=== PATIENT | male | born 1975 | race Hispanic/Latino ===

== ENCOUNTER 2019-08-31 11:33 | Emergency (ER) | payer SELFPAY ==
[2019-08-31 11:55] LABS: Absolute Lymphocytes (CBC) 2.4 K/uL (0.7-4.9); Basophils % 0.8 % (0-1.3); Hematocrit 50.5 % (39.6-49.0); Lymphocytes % 24.9 % (15.3-44.8); MPV 10.4 fL (7.6-11.3); RBC Red Blood Cell Count 5.31 M/uL (4.33-5.43)
[2019-08-31 11:58] LABS: Protime INR 0.96
[2019-08-31 12:12] LABS: ALT/SGPT 64 U/L (12-78); AST/SGOT 41 U/L (15-37); Albumin 4.1 g/dL (3.4-5.0); Alkaline Phosphatase 74 U/L (45-117); BUN Blood Urea Nitrogen 15 mg/dL (7-18); Bicarbonate 28 mmol/L (21-32); Bilirubin Direct < 0.1 mg/dL (0-0.2); Bilirubin Total 0.3 mg/dL (0.2-1.0); Glucose Level 119 mg/dL (74-106); Magnesium 2.6 mg/dL (1.8-2.4); NT PRO-BNP 6 pg/mL (<125); Potassium 4.1 mmol/L (3.5-5.1); Protein, Total 8.6 g/dL (6.4-8.2); Sodium Level 144 mmol/L (136-145); Troponin (Emerg Dept Use Only) < 0.02 ng/mL (0.0-0.045)
[2019-08-31 12:32] LABS: Barbiturates NEGATIVE (NEGATIVE); Benzodiazepines NEGATIVE (NEGATIVE); Cocaine NEGATIVE (NEGATIVE); METHAMPHETAM NEGATIVE (NEGATIVE); Methadone NEGATIVE (NEGATIVE); Opiates NEGATIVE (NEGATIVE); Phencyclidine NEGATIVE (NEGATIVE); THC Cannibis NEGATIVE (NEGATIVE)
--- NOTE | 2019-08-31 12:38 | RAD REPORT ---
EXAM DESCRIPTION: Shahzad Single View08/31/2019 12:30 pm CLINICAL HISTORY: Chest pain COMPARISON: none FINDINGS: The lungs appear clear of acute infiltrate. The heart is normal size IMPRESSION: No acute abnormalities displayed
[2019-08-31 13:06] LABS: Urine Blood NEGATIVE (NEG); Urine Glucose NEGATIVE (NEG); Urine Protein TRACE (NEG); Urine Specific Gravity >1.030 (1.005-1.030); Urine pH 5.5 (5.0-7.0)
--- NOTE | 2019-08-31 13:30 | ER ---
Nurse's Notes [facility] Name: Tima Mendoza Age: 44 yrs Sex: Male : 1975 Arrival Date: 08/31/2019 Time: 11:37 Bed 17 Private MD: Diagnosis: Anxiety disorder, unspecified;Other chest pain;Alcohol abuse Presentation: 08/31 11:38 Presenting complaint: EMS states: Chest pressure started 6 hours. Gave Aspirin 324mg, ca1 Nitro SL x 3. Pt A\T\Ox4, GCS 15. VS BP 124/72, HR 80, RR 16, SP02 97%RA. Pt from [facility] for DWI. He was here last night for a legal draw. Now, accompanied by [employer]. No Hx of Cardiac problem. Med Hx of HPN. Transition of care: patient was not received from another setting of care. Onset of symptoms was August 31, 2019 at 05:40. Risk Assessment: Do you want to hurt yourself or someone else? Patient reports no desire to harm self or others. Initial Sepsis Screen: Does the patient meet any 2 criteria? No. Patient's initial sepsis screen is negative. Does the patient have a suspected source of infection? No. Patient's initial sepsis screen is negative. Care prior to arrival: Medication(s) given: ASA, 81 mg, x 4, Nitroglycerin, 0.4 mg SL x 3, IV initiated. 18 GA, in the right antecubital area. 11:38 Method Of Arrival: EMS ca1 11:38 Acuity: ADONIS 3 ca1 11:40 Note [employer] at bedside and pt remains in their custody at this time. tw2 Triage Assessment: 11:40 General: Behavior is calm. Pain: Complains of pain in chest. tw2 14:04 General: Appears. hb Historical: - Allergies: 11:43 No Known Allergies; ca1 - Home Meds: 11:43 None [Active]; ca1 - PMHx: 11:43 Hypertension; ca1 - PSHx: 11:43 None; ca1 - Immunization history:: Adult Immunizations up to date, Flu vaccine is not up to date. - Social history:: Smoking status: Patient uses tobacco products, 3-4 cigarettes per day. - Ebola Screening: : Patient negative for fever greater than or equal to 101.5 degrees Fahrenheit, and additional compatible Ebola Virus Disease symptoms Patient denies exposure to infectious person Patient denies travel to an Ebola-affected area in the 21 days before illness onset No symptoms or risks identified at this time. - Family history:: not pertinent. Screenin:45 Abuse screen: Denies threats or abuse. Denies injuries from another. Nutritional ca1 screening: No deficits noted. Tuberculosis screening: No symptoms or risk factors identified. Fall Risk IV access (20 points). Assessment: 12:45 Reassessment: Patient appears in no apparent distress at this time. No changes from tw2 previously documented assessment. Patient and/or family updated on plan of care and expected duration. Pain level reassessed. Patient is alert, oriented x 3, equal unlabored respirations, skin warm/dry/pink. Vital Signs: 11:43 BP 113 / 72; Pulse 84; Resp 12 S; Temp 98.9(TE); Pulse Ox 98% on R/A; Weight 78.93 kg ca1 (R); Height 5 ft. 7 in. (170.18 cm) (R); Pain 3/10; 12:45 BP 139 / 92; Pulse 86; Resp 17; Pulse Ox 96% on R/A; tw2 11:43 Body Mass Index 27.25 (78.93 kg, 170.18 cm) ca1 ED Course: 11:37 Patient arrived in ED. ca1 11:37 Davon Hidalgo MD is Attending Physician. meeta 11:41 Tabatha Farmer, SARA is Primary Nurse. tw2 11:42 Triage completed. ca1 11:43 Arm band placed on right wrist. ca1 11:44 Patient has correct armband on for positive identification. Bed in low position. Call ca1 light in reach. Side rails up X 1. bottle labeler on. Pulse ox on. NIBP on. Warm blanket given. 11:45 Maintain EMS IV. Dressing intact. Good blood return noted. Site clean \T\ dry. Gauge \T\ ca 1 site: G18 RAC. 11:49 Basic Metabolic Panel Sent. 5 11:49 CBC with Diff Sent. 5 11:49 LFT's Sent. 5 11:49 Magnesium Sent. 5 11:49 NT PRO-BNP Sent. 5 11:49 PT-INR Sent. 5 11:49 Troponin (emerg Dept Use Only) Sent. 5 11:50 Initial lab(s) drawn, by me, sent to lab. EKG done, by ED staff, reviewed by Davon Hidalgo MD. 12:26 X-ray completed. Portable x-ray completed in exam room. Patient tolerated procedure mh1 well. 12:30 XRAY Chest (1 view) In Process Unspecified. EDMS 13:28 Nolan Judge MD is Referral Physician. [facility] 14:04 No provider procedures requiring assistance completed. IV discontinued, intact, tw2 bleeding controlled, No redness/swelling at site. Pressure dressing applied. Administered Medications: 14:03 Drug: Thiamine 100 mg Route: IV; Rate: per protocol; Site: right antecubital; hb 14:03 Follow up: Response: Medication administered at discharge. hb 14:04 Follow up: Response: No adverse reaction; IV Status: Completed infusion tw2 14:03 Drug: Aspirin 81 mg Route: PO; hb 14:03 Follow up: Response: Medication administered at discharge. hb Outcome: 13:29 Discharge ordered by . meeta 14:04 Patient left the ED. hb 14:04 Discharged to Law Enforcement tw2 14:04 Condition: stable 14:04 Discharge instructions given to patient, police, Instructed on discharge instructions, follow up and referral plans. Demonstrated understanding of instructions, follow-up care. Signatures: Dispatcher [employer] EDAR Davon Hidalgo MD MD cha Harvey, Martha 1 Bety Rivero, RN RN Tabatha Farmer RN RN 2 Nicolette Sommers 5 Jimena Witt RN RN ca1 Corrections: (The following items were deleted from the chart) 11:45 11:45 Fall Risk ca1 ca1
--- NOTE | 2019-08-31 13:31 | EDPHYS ---
Physician Documentation [facility] Name: Tima Mendoza Age: 44 yrs Sex: Male : 1975 Arrival Date: 08/31/2019 Time: 11:37 Bed 17 Private MD: ED Physician Davon Hidalgo HPI: 08/31 13:24 This 44 yrs old Male presents to ER via EMS with complaints of chest pain and [facility] anxiety. 13:24 The patient or guardian reports chest pain that is located primarily in the anterior meeta chest wall. Onset: 6 day(s) ago. The pain does not radiate. Associated signs and symptoms: The patient has no apparent associated signs or symptoms. The chest pain is described as aching. Modifying factors: The symptoms are alleviated by remaining still, the symptoms are aggravated by emotionally stressful situations. Severity of pain: At its worst the pain was mild in the emergency department the pain has resolved. Historical: - Allergies: 11:43 No Known Allergies; ca1 - Home Meds: 11:43 None [Active]; ca1 - PMHx: 11:43 Hypertension; ca1 - PSHx: 11:43 None; ca1 - Immunization history:: Adult Immunizations up to date, Flu vaccine is not up to date. - Social history:: Smoking status: Patient uses tobacco products, 3-4 cigarettes per day. - Ebola Screening: : Patient negative for fever greater than or equal to 101.5 degrees Fahrenheit, and additional compatible Ebola Virus Disease symptoms Patient denies exposure to infectious person Patient denies travel to an Ebola-affected area in the 21 days before illness onset No symptoms or risks identified at this time. - Family history:: not pertinent. ROS: 13:24 Constitutional: Negative for fever, chills, and weight loss, Eyes: Negative for injury, meeta pain, redness, and discharge, ENT: Negative for injury, pain, and discharge, Neck: Negative for injury, pain, and swelling, Respiratory: Negative for shortness of breath, cough, wheezing, and pleuritic chest pain, Abdomen/GI: Negative for abdominal pain, nausea, vomiting, diarrhea, and constipation, Back: Negative for injury and pain, : Negative for injury, bleeding, discharge, and swelling, MS/Extremity: Negative for injury and deformity, Skin: Negative for injury, rash, and discoloration, Neuro: Negative for headache, weakness, numbness, tingling, and seizure, Allergy/Immunology: Negative for hives, rash, and allergies, Endocrine: Negative for neck swelling, polydipsia, polyuria, polyphagia, and marked weight changes, Hematologic/Lymphatic: Negative for swollen nodes, abnormal bleeding, and unusual bruising. 13:24 Cardiovascular: Positive for chest pain, palpitations. Exam: 13:24 Constitutional: This is a well developed, well nourished patient who is awake, alert, meeta and in no acute distress. Head/Face: Normocephalic, atraumatic. Eyes: Pupils equal round and reactive to light, extra-ocular motions intact. Lids and lashes normal. Conjunctiva and sclera are non-icteric and not injected. Cornea within normal limits. Periorbital areas with no swelling, redness, or edema. ENT: Nares patent. No nasal discharge, no septal abnormalities noted. Tympanic membranes are normal and external auditory canals are clear. Oropharynx with no redness, swelling, or masses, exudates, or evidence of obstruction, uvula midline. Mucous membranes moist. Neck: Trachea midline, no thyromegaly or masses palpated, and no cervical lymphadenopathy. Supple, full range of motion without nuchal rigidity, or vertebral point tenderness. No Meningismus. Chest/axilla: Normal chest wall appearance and motion. Nontender with no deformity. No lesions are appreciated. Cardiovascular: Regular rate and rhythm with a normal S1 and S2. No gallops, murmurs, or rubs. Normal PMI, no JVD. No pulse deficits. Respiratory: Lungs have equal breath sounds bilaterally, clear to auscultation and percussion. No rales, rhonchi or wheezes noted. No increased work of breathing, no retractions or nasal flaring. Abdomen/GI: Soft, non-tender, with normal bowel sounds. No distension or tympany. No guarding or rebound. No evidence of tenderness throughout. Back: No spinal tenderness. No costovertebral tenderness. Full range of motion. Male : Normal genitalia with no discharge or lesions. Skin: Warm, dry with normal turgor. Normal color with no rashes, no lesions, and no evidence of cellulitis. MS/ Extremity: Pulses equal, no cyanosis. Neurovascular intact. Full, normal range of motion. Neuro: Awake and alert, GCS 15, oriented to person, place, time, and situation. Cranial nerves II-XII grossly intact. Motor strength 5/5 in all extremities. Sensory grossly intact. Cerebellar exam normal. Normal gait. Psych: Awake, alert, with orientation to person, place and time. Behavior, mood, and affect are within normal limits. 13:24 Musculoskeletal/extremity: DVT Exam: No signs of deep vein thrombosis. no pain, no swelling, no tenderness, negative Homans' sign noted on exam, no appreciated bluish discoloration, no erythema, no increased warmth. Vital Signs: 11:43 BP 113 / 72; Pulse 84; Resp 12 S; Temp 98.9(TE); Pulse Ox 98% on R/A; Weight 78.93 kg ca1 (R); Height 5 ft. 7 in. (170.18 cm) (R); Pain 3/10; 12:45 BP 139 / 92; Pulse 86; Resp 17; Pulse Ox 96% on R/A; tw2 11:43 Body Mass Index 27.25 (78.93 kg, 170.18 cm) ca1 MDM: 11:37 Patient medically screened. [facility] 13:26 Data reviewed: vital signs, nurses notes, lab test result(s), EKG, radiologic studies, meeta plain films. 08/31 11:37 Order name: Basic Metabolic Panel; Complete Time: 13:23 ca1 08/31 11:37 Order name: CBC with Diff; Complete Time: 13:23 ca1 08/31 11:37 Order name: LFT's; Complete Time: 13:23 ca1 08/31 11:37 Order name: Magnesium; Complete Time: 13:23 ca1 08/31 11:37 Order name: NT PRO-BNP; Complete Time: 13:23 ca1 08/31 11:37 Order name: PT-INR; Complete Time: 13:23 ca1 08/31 11:37 Order name: Troponin (emerg Dept Use Only); Complete Time: 13:23 ca1 08/31 11:37 Order name: XRAY Chest (1 view); Complete Time: 13:23 ca1 08/31 11:37 Order name: EKG; Complete Time: 11: ca1 08/31 11:37 Order name: Cardiac monitoring; Complete Time: 11: ca1 08/31 12:04 Order name: UDS; Complete Time: 13:23 tw2 08/31 12:46 Order name: Urine Dipstick--Ancillary (enter results); Complete Time: 13:23 bd 08/31 11:37 Order name: EKG - Nurse/Tech; Complete Time: 11:49 ca1 08/31 11:37 Order name: IV Saline Lock; Complete Time: 11:38 ca1 08/31 11:37 Order name: Labs collected and sent; Complete Time: 11:38 ca1 08/31 11:37 Order name: O2 Per Protocol; Complete Time: 11:38 ca1 08/31 11:37 Order name: O2 Sat Monitoring; Complete Time: 11:38 ca1 08/31 12:05 Order name: Urine Dipstick-Ancillary (obtain specimen); Complete Time: 12:22 tw2 Administered Medications: 14:03 Drug: Thiamine 100 mg Route: IV; Rate: per protocol; Site: right antecubital; hb 14:03 Follow up: Response: Medication administered at discharge. hb 14:04 Follow up: Response: No adverse reaction; IV Status: Completed infusion tw2 14:03 Drug: Aspirin 81 mg Route: PO; hb 14:03 Follow up: Response: Medication administered at discharge. hb Disposition: 08/31/19 13:29 Discharged to Home. Impression: Anxiety disorder, unspecified, Other chest pain, Alcohol abuse. - Condition is Stable. - Discharge Instructions: Panic Attacks, Nonspecific Chest Pain, Panic Attacks, [id number], Aspirin and Your Heart. - Medication Reconciliation Form, Thank You Letter, Antibiotic Education, Prescription Opioid Use form. - Follow up: Private Physician; When: 2 - 3 days; Reason: Recheck today's complaints, Continuance of care, Re-evaluation by your physician. Follow up: Nolan Judge MD; When: 2 - 3 days; Reason: Recheck today's complaints, Re-evaluation by your physician. - Problem is new. - Symptoms have improved. Signatures: Dispatcher [employer] Davon Solorzano MD MD cha Baxter, Heather, RN RN hb Tabatha Farmer, RN RN tw2 Jimena Witt RN RN ca1 Corrections: (The following items were deleted from the chart) 14:04 13:29 08/31/2019 13:29 Discharged to Home. Impression: Anxiety disorder, unspecified; hb Other chest pain; Alcohol abuse. Condition is Stable. Forms are Medication Reconciliation Form, Thank You Letter, Antibiotic Education, Prescription Opioid Use. Follow up: Private Physician; When: 2 - 3 days; Reason: Recheck today's complaints, Continuance of care, Re-evaluation by your physician. Follow up: Nolan Judge; When: 2 - 3 days; Reason: Recheck today's complaints, Re-evaluation by your physician. Problem is new. Symptoms have improved. meeta
[2019-08-31] MEDS ORDERED: ASPIRIN 81 MG CHEWABLE TABLET ONE (13:57)
[2019-08-31] MEDS ORDERED: THIAMINE 200 MG/2 ML INJ ONE (13:58)
[2019-08-31 14:27] VITALS: TEMP 98.9
[2019-08-31 14:28] VITALS: BP 139/92; O2SAT 96
--- NOTE | 2019-08-31 15:36 | EKG ---
Test Date: 2019-08-31 Test Time: 11:47:38 Trial Attorney: ALEXEY MEASUREMENT RESULTS: Intervals: Rate: 86 KS: 144 QRSD: 80 QT: 354 QTc: 423 [place]: P: 38 KS: 144 QRS: 76 T: 13 INTERPRETIVE STATEMENTS: Normal sinus rhythm Possible Left atrial enlargement Borderline ECG No previous ECG available for comparison Electronically Signed On 08-31-19 15:35:08 SHOER by Rosas Navarro
== END 2019-08-31 14:04 | disposition home or self-care (01) ==
LOC: ER 11:33
DX: F41.9 Anxiety disorder, unspecified (principal); F10.10 Alcohol abuse, uncomplicated; I10 Essential (primary) hypertension; F17.210 Nicotine dependence, cigarettes, uncomplicated
CPT/HCPCS: 36415; 71045; 80048; 80076; 80307; 81003; 83735; 83880; 84484; 85025; 85610; 93005; 96374; 99284; J3411

== ENCOUNTER 2022-06-26 18:02 | Emergency (ER) | payer SELFPAY ==
[2022-06-26] MEDS ORDERED: HYDROCODONE/APAP 10/325 TAB ONE (18:27)
--- NOTE | 2022-06-26 19:04 | RAD REPORT ---
EXAM DESCRIPTION: RAD - Ribs Right - 06/26/2022 6:45 pm CLINICAL HISTORY: rib pain COMPARISON: <Comparisons> FINDINGS: Mildly displaced right lateral eighth through tenth rib fractures. No appreciable pneumoth orax identified. IMPRESSION: Right lateral eighth through tenth rib fractures. No appreciable pneumothorax .
[2022-06-26] MEDS ORDERED: MORPHINE 4 MG/ML SYR ONE (19:49)
[2022-06-26 20:08] LABS: Absolute Lymphocytes (CBC) 1.5 K/uL (0.7-4.9); Hematocrit 48.8 % (39.6-49.0); Lymphocytes % 9.6 % (15.3-44.8); MCV 93.2 fL (80-100); RBC Red Blood Cell Count 5.23 M/uL (4.33-5.43)
--- NOTE | 2022-06-26 22:09 | RAD REPORT ---
EXAM DESCRIPTION: CTChest Abdomen Pelvis W Cont - 06/26/2022 9:39 pm CLINICAL HISTORY: fall, right side rib pain COMPARISON: No comparisons TECHNIQUE: CT of the chest, abdomen, and pelvis was performed with IV contrast. All CT scans are performed using dose optimization technique as appropriate and may include automated exposure control or mA/KV adjustment according to patient size. FINDINGS: Thorax: Chest Wall: No abnormal mass Lungs: No acute abnormality. Pleura: No effusions or pneumothorax. Kerri/Mediastinum: No lymphadenopathy. Aorta/Pulmonary Arteries: Unremarkable Heart: Normal size. Abdomen/Pelvis: Liver: No acute abnormality or suspicious lesions. Biliary: No biliary ductal dilatation. Stomach: No significant focal abnormality. Duodenum: No significant focal abnormality. Pancreas: No significant abnormality. Spleen: No significant abnormality. Adrenal: No suspicious lesions. Kidney/ureter: No hydronephrosis. No renal calculi. Retroperitoneum: No retroperitoneal adenopathy. Vascular: No aneurysm. Bowel: No significant focal abnormality. Normal appendix. Peritoneum: No ascites or free air. Bladder: Grossly unremarkable. Reproductive: Prostatomegaly. Bones: Nondisplaced right posterior twelfth rib fracture. Right lateral eighth and ninth rib fracture s. The ninth rib fracture is displaced by a full shaft with. Other: n/a IMPRESSION: Right eighth, ninth and twelfth rib fractures. No underlying pneumothorax. No other evid ence of significant trauma.
--- NOTE | 2022-06-26 22:36 | EDPHYS ---
Physician Documentation [facility] Name: Tima Mendoza Age: 46 yrs Sex: Male : 1975 Arrival Date: 06/26/2022 Time: 18:13 Bed 24 Private MD: ED Physician Alycia Rodríguez HPI: 06/26 18:25 This 46 yrs old Male presents to ER via EMS with complaints of Fall Injury. cp 18:25 Details of fall: The patient fell from an upright position, slip and fall in bathroom cp striking right side of chest and abdomen against bathtub. 18:25 Onset: The symptoms/episode began/occurred just prior to arrival. Patient denies cp hitting head, denies LOC. Historical: - Allergies: 18:16 No Known Allergies; tp1 - Home Meds: 18:16 None [Active]; tp1 - PMHx: 18:16 Hypertension; tp1 - PSHx: 18:16 None; tp1 - Immunization history:: Client reports receiving the 2nd dose of the Covid vaccine. - Social history:: Smoking status: Patient reports the use of cigarette tobacco products, smokes one-half pack cigarettes per day. - Immunization history: Last tetanus immunization: unknown. ROS: 18:30 Constitutional: Negative for body aches, chills, fever, poor PO intake. cp 18:30 Eyes: Negative for injury, pain, redness, and discharge. cp 18:30 ENT: Negative for drainage from ear(s), ear pain, sore throat, difficulty swallowing, difficulty handling secretions. 18:30 Neck: Negative for pain with movement, pain at rest, stiffness. 18:30 Cardiovascular: Positive for chest pain, of the right lateral posterior chest and right lateral anterior chest, Negative for edema, palpitations. 18:30 Respiratory: Negative for cough, shortness of breath, wheezing. 18:30 Abdomen/GI: Positive for abdominal pain, of the anterior aspect of right lateral abdomen and posterior aspect of right lateral abdomen, Negative for vomiting, diarrhea, constipation. 18:30 Neuro: Negative for altered mental status, headache, loss of consciousness, syncope, weakness. 18:30 All other systems are negative. Exam: 18:35 Constitutional: The patient appears in no acute distress, alert, awake, cp non-diaphoretic, non-toxic, well developed, well nourished, in obvious pain, uncomfortable. 18:35 Head/Face: Normocephalic, atraumatic. cp 18:35 Eyes: Periorbital structures: appear normal, Conjunctiva: normal, no exudate, no injection, Sclera: no appreciated abnormality, Lids and lashes: appear normal, bilaterally. 18:35 ENT: External ear(s): are unremarkable, Nose: is normal, Mouth: Lips: moist, Oral mucosa: pink and intact, moist, Posterior pharynx: Airway: no evidence of obstruction, patent. 18:35 Neck: C-spine: vertebral tenderness, is not appreciated, crepitus, is not appreciated, ROM/movement: is normal, is supple, without pain, no range of motions limitations. 18:35 Chest/axilla: Inspection: normal, Palpation: crepitus, is not appreciated, tenderness, that is moderate, of the right lateral anterior chest and right lateral posterior chest. 18:35 Cardiovascular: Rate: normal, Rhythm: regular, Edema: is not appreciated, JVD: is not appreciated. 18:35 Respiratory: the patient does not display signs of respiratory distress, Respirations: normal, no use of accessory muscles, no retractions, labored breathing, is not present, Breath sounds: are clear throughout, no decreased breath sounds, no stridor, no wheezing. 18:35 Abdomen/GI: Inspection: abdomen appears normal, Bowel sounds: active, all quadrants, Palpation: soft, in all quadrants, moderate abdominal tenderness, in the right upper quadrant and posterior aspect of right lateral abdomen and anterior aspect of right lateral abdomen, rebound tenderness, is not appreciated, involuntary guarding, is not appreciated. 18:35 Back: vertebral tenderness, is not appreciated. 18:35 Neuro: Orientation: to person, place \T\ time. Mentation: is normal, Motor: moves all fours, strength is normal, Sensation: is normal. Vital Signs: 18:03 BP 158 / 85; Pulse 72; Resp 16; Temp 98.5; Pulse Ox 96% on R/A; Weight 80 kg; Height 6 tp1 ft. (182.88 cm); 19:05 BP 131 / 65; Pulse 59; Resp 16; Pulse Ox 96% on R/A; tp1 20:01 BP 143 / 93; Pulse 66; Resp 16; Pulse Ox 96% on R/A; tp1 21:00 BP 146 / 96; Pulse 64; Resp 16; Pulse Ox 98% ; tp1 22:54 BP 119 / 91; Pulse 60; Resp 16; Pulse Ox 97% on R/A; tp1 18:03 Body Mass Index 23.92 (80.00 kg, 182.88 cm) tp1 Luly Coma Score: 18:03 Eye Response: spontaneous(4). Verbal Response: oriented(5). Motor Response: obeys ss commands(6). Total: 15. 18:35 Eye Response: spontaneous(4). Verbal Response: oriented(5). Motor Response: obeys cp commands(6). Total: 15. 19:05 Eye Response: spontaneous(4). Verbal Response: oriented(5). Motor Response: obeys tp1 commands(6). Total: 15. 20:01 Eye Response: spontaneous(4). Verbal Response: oriented(5). Motor Response: obeys tp1 commands(6). Total: 15. 21:00 Eye Response: spontaneous(4). Verbal Response: oriented(5). Motor Response: obeys tp1 commands(6). Total: 15. 22:54 Eye Response: spontaneous(4). Verbal Response: oriented(5). Motor Response: obeys tp1 commands(6). Total: 15. Trauma Score (Adult): 18:03 Eye Response: spontaneous(1); Verbal Response: oriented(1); Motor Response: obeys ss commands(2); Systolic BP: > 89 mm Hg(4); Respiratory Rate: 10 to 29 per min(4); [place] Score: 15; Trauma Score: 12 19:05 Eye Response: spontaneous(1); Verbal Response: oriented(1); Motor Response: obeys tp1 commands(2); Systolic BP: > 89 mm Hg(4); Respiratory Rate: 10 to 29 per min(4); [place] Score: 15; Trauma Score: 12 20:01 Eye Response: spontaneous(1); Verbal Response: oriented(1); Motor Response: obeys tp1 commands(2); Systolic BP: > 89 mm Hg(4); Respiratory Rate: 10 to 29 per min(4); [place] Score: 15; Trauma Score: 12 21:00 Eye Response: spontaneous(1); Verbal Response: oriented(1); Motor Response: obeys tp1 commands(2); Systolic BP: > 89 mm Hg(4); Respiratory Rate: 10 to 29 per min(4); [place] Score: 15; Trauma Score: 12 22:54 Eye Response: spontaneous(1); Verbal Response: oriented(1); Motor Response: obeys tp1 commands(2); Systolic BP: > 89 mm Hg(4); Respiratory Rate: 10 to 29 per min(4); [place] Score: 15; Trauma Score: 12 MDM: 18:22 Patient medically screened. cp 19:00 Differential diagnosis: closed head injury, contusion, fracture, multiple trauma. cp 22:35 Data reviewed: vital signs, nurses notes, lab test result(s), radiologic studies, CT cp scan, plain films. 22:35 Test interpretation: by ED physician or midlevel provider: plain radiologic studies. cp Counseling: I had a detailed discussion with the patient and/or guardian regarding: the historical points, exam findings, and any diagnostic results supporting the discharge/admit diagnosis, lab results, radiology results, the need for outpatient follow up, a family practitioner. Response to treatment: the patient's symptoms have markedly improved after treatment. ED course: VSS. Pain improved. Patient with no signs of respiratory distress. Will discharge to home for continued monitoring. 06/26 19:32 Order name: Basic Metabolic Panel; Complete Time: 22:32 cp 06/26 22:32 Interpretation: Normal except: GLUC 112; BUN 19; GFR 82. cp 06/26 19:32 Order name: CBC with Diff; Complete Time: 22:32 cp 06/26 22:32 Interpretation: Normal except: WBC 16.00; RIC% 83.2; LYM% 9.6; NEUT A 13.4. cp 06/26 18:20 Order name: XRAY Ribs RIGHT; Complete Time: 19:19 cp 06/26 19:32 Order name: CT Chest, Abdomen, Pelvis - W/Contrast; Complete Time: 22:32 cp 06/26 19:32 Order name: Type And Screen; Complete Time: 22:32 cp 06/26 19:32 Order name: Labs collected and sent; Complete Time: 19:58 cp 06/26 19:52 Order name: INCENTIVE SPIROMETRY cp Administered Medications: 18:20 CANCELLED (Physician Discretion): Hydrocodone-Acetaminophen (7.5 mg-325 mg) 1 tabs PO cp once 18:28 Drug: HYDROcodone-acetaminophen 10 mg-325 mg 1 tabs Route: PO; tp1 22:57 Follow up: Response: Pain is decreased tp1 19:58 Drug: morphine 4 mg Route: IVP; Infused Over: 4 mins; Site: right antecubital; tp1 22:57 Follow up: Response: Pain is decreased tp1 Disposition Summary: 06/26/22 22:35 Discharge Ordered Location: Home cp Problem: new cp Symptoms: have improved cp Condition: Stable cp Diagnosis - Multiple fractures of ribs, right side - 8th, 9th and 12th cp - Fall on same level from slipping, tripping and stumbling with subsequent striking cp against object Followup: cp - With: Private Physician - When: 1 - 2 days - Reason: Recheck today's complaints Discharge Instructions: - Discharge Summary Sheet cp - Fall Prevention in the Home, Adult cp - Rib Fracture cp - How to Use an Incentive Spirometer cp Forms: - Medication Reconciliation Form cp - Thank You Letter cp - Antibiotic Education cp - Prescription Opioid Use cp Prescriptions: - Ibuprofen 800 mg Oral Tablet - take 1 tablet by ORAL route every 8 hours As needed take with food; 30 tablet; cp Refills: 0, Product Selection Permitted - Tylenol-Codeine #3 300 mg-30 mg Oral - take 2 tablet by ORAL route every 6-8 hours; 20 tablet; Refills: 0, Product cp Selection Permitted Signatures: Dispatcher [employer] EDMS Davon Catalan PA PA cp Amee Solis RN RN tp1 Corrections: (The following items were deleted from the chart) 18:20 18:20 Hydrocodone-Acetaminophen (7.5 mg-325 mg) 1 tabs PO once ordered. cp cp 19:42 18:54 [id number] ordered. EDMS EDMS 22:33 22:32 Normal except: WBC 16.00. cp cp
--- NOTE | 2022-06-26 22:36 | ER ---
Nurse's Notes [facility] Name: Tima Mendoza Age: 46 yrs Sex: Male : 1975 Arrival Date: 06/26/2022 Time: 18:13 Bed 24 Private MD: Diagnosis: Multiple fractures of ribs, right side-8th, 9th and 12th;Fall on same level from slipping, tripping and stumbling with subsequent striking against object Presentation: 06/26 18:03 Chief complaint: EMS states: Toned out to PT home for a fall. PT fell while in the tp1 shower. CO right sided rib pain rated 2/10. EMS reported PT ambulated to EMS from second story apartment. 18:03 Coronavirus screen: Vaccine status: Patient reports receiving the 2nd dose of the covid tp1 vaccine. Ebola Screen: Patient denies exposure to infectious person. Patient denies travel to an Ebola-affected area in the 21 days before illness onset. Initial Sepsis Screen: Does the patient meet any 2 criteria? No. Patient's initial sepsis screen is negative. Does the patient have a suspected source of infection? No. Patient's initial sepsis screen is negative. Risk Assessment: Do you want to hurt yourself or someone else? Patient reports no desire to harm self or others. 18:03 Method Of Arrival: EMS: [facility] tp1 18:03 Onset of symptoms was June 26, 2022. tp1 18:03 Acuity: ADONIS 4 tp1 22:55 Mechanism of Injury: Fall. tp1 Triage Assessment: 18:03 General: Appears in no apparent distress. uncomfortable, Behavior is calm, cooperative. tp1 Pain: Complains of pain in right side of ribs Pain does not radiate. Pain currently is 7 out of 10 on a pain scale. Pain began 1 hour ago. Is continuous, Aggravated by repositioning. EENT: No deficits noted. Neuro: Jack Agitation-Sedation Scale (RASS): 0 - Alert and Calm Level of Consciousness is awake, alert, obeys commands, Oriented to person, place, time, situation. Cardiovascular: Capillary refill < 3 seconds in bilateral fingers Patient's skin is warm and dry. Cardiovascular: Denies chest pain. Respiratory: Airway is patent Respiratory effort is even, Respiratory pattern is regular, Denies shortness of breath. GI: Abdomen is flat, non-distended, Abd is soft and non tender. : No signs and/or symptoms were reported regarding the genitourinary system. Derm: Skin is pink, warm \T\ dry. Musculoskeletal: Circulation, motion, and sensation intact. Historical: - Allergies: 18:16 No Known Allergies; tp1 - Home Meds: 18:16 None [Active]; tp1 - PMHx: 18:16 Hypertension; tp1 - PSHx: 18:16 None; tp1 - Immunization history:: Client reports receiving the 2nd dose of the Covid vaccine. - Social history:: Smoking status: Patient reports the use of cigarette tobacco products, smokes one-half pack cigarettes per day. - Immunization history: Last tetanus immunization: unknown. Screenin:18 Abuse screen: Denies threats or abuse. Denies injuries from another. Nutritional tp1 screening: No deficits noted. Tuberculosis screening: No symptoms or risk factors identified. Fall Risk Fall in past 12 months (25 points). No secondary diagnosis (0 pts). No IV (0 pts). Ambulatory Aid- None/Bed Rest/Nurse Assist (0 pts). Gait- Normal/Bed Rest/Wheelchair (0 pts) Mental Status- Oriented to own ability (0 pts). Total Rg Fall Scale indicates Low Risk Score (25-44 pts). Fall prevention measures have been instituted. Side Rails Up X 2 Frequent Obs/Assesments occuring As available Patient and Family Educated on Fall Prevention Program and strategies. Primary Survey: 18:03 NO uncontrolled hemorrhage observed. Breathing/Chest: Spontaneous respiratory effort, ss equal unlabored respirations, breath sounds clear bilaterally, regular pattern, symmetrical chest rise and fall. Respiratory effort: spontaneous, unlabored, Breath sounds: clear, bilaterally. Respiratory pattern: regular, Chest inspection: symmetrical rise and fall of the chest. Circulation: No external hemorrhage present. Regular and strong central pulse, skin warm/dry/normal color. Disability Pupils are equal, round, reactive to light and accommodation. Client is alert. Exposure/Environment: There is no evidence of uncontrolled external bleeding. Assessment: 18:03 General: see triage notes . tp1 18:03 General: Appears in no apparent distress. comfortable, Behavior is calm, cooperative. ss Pain: Complains of pain in right lateral anterior chest and right lateral posterior chest Is continuous. Neuro: Level of Consciousness is awake, alert, obeys commands, Oriented to person, place, time, situation, Speech is normal, Facial symmetry appears normal. Cardiovascular: Capillary refill < 3 seconds is brisk in bilateral fingers Patient's skin is warm and dry. Respiratory: Airway is patent Respiratory effort is even, unlabored, Respiratory pattern is regular, symmetrical. Respiratory: Denies cough, shortness of breath labored breathing. Derm: Skin is intact, is healthy with good turgor, Skin is pink, warm \T\ dry. normal. Musculoskeletal: Circulation, motion, and sensation intact. Range of motion: intact in all extremities, Swelling absent. 19:04 Reassessment: Patient appears in no apparent distress at this time. No changes from tp1 previously documented assessment. Patient and/or family updated on plan of care and expected duration. Pain level reassessed. Patient is alert, oriented x 3, equal unlabored respirations, skin warm/dry/pink. states pain is getting better. pain rated 5/10. 19:59 Reassessment: PT educated on need for incentive spirometry use. PT verbalized tp1 understanding how to use. 19:59 Reassessment: Patient appears in no apparent distress at this time. No changes from tp1 previously documented assessment. Patient is alert, oriented x 3, equal unlabored respirations, skin warm/dry/pink. Continues to CO 5/10 pain. Son at bedside. 21:00 Reassessment: Patient appears in no apparent distress at this time. No changes from tp1 previously documented assessment. Patient and/or family updated on plan of care and expected duration. Pain level reassessed. Patient is alert, oriented x 3, equal unlabored respirations, skin warm/dry/pink. 22:00 Reassessment: Patient appears in no apparent distress at this time. No changes from tp1 previously documented assessment. Patient and/or family updated on plan of care and expected duration. Pain level reassessed. Patient is alert, oriented x 3, equal unlabored respirations, skin warm/dry/pink. Patient denies pain at this time. 22:56 Reassessment: Patient appears in no apparent distress at this time. No changes from tp1 previously documented assessment. Patient is alert, oriented x 3, equal unlabored respirations, skin warm/dry/pink. Vital Signs: 18:03 BP 158 / 85; Pulse 72; Resp 16; Temp 98.5; Pulse Ox 96% on R/A; Weight 80 kg; Height 6 tp1 ft. (182.88 cm); 19:05 BP 131 / 65; Pulse 59; Resp 16; Pulse Ox 96% on R/A; tp1 20:01 BP 143 / 93; Pulse 66; Resp 16; Pulse Ox 96% on R/A; tp1 21:00 BP 146 / 96; Pulse 64; Resp 16; Pulse Ox 98% ; tp1 22:54 BP 119 / 91; Pulse 60; Resp 16; Pulse Ox 97% on R/A; tp1 18:03 Body Mass Index 23.92 (80.00 kg, 182.88 cm) tp1 [place] Coma Score: 18:03 Eye Response: spontaneous(4). Verbal Response: oriented(5). Motor Response: obeys ss commands(6). Total: 15. 18:35 Eye Response: spontaneous(4). Verbal Response: oriented(5). Motor Response: obeys cp commands(6). Total: 15. 19:05 Eye Response: spontaneous(4). Verbal Response: oriented(5). Motor Response: obeys tp1 commands(6). Total: 15. 20:01 Eye Response: spontaneous(4). Verbal Response: oriented(5). Motor Response: obeys tp1 commands(6). Total: 15. 21:00 Eye Response: spontaneous(4). Verbal Response: oriented(5). Motor Response: obeys tp1 commands(6). Total: 15. 22:54 Eye Response: spontaneous(4). Verbal Response: oriented(5). Motor Response: obeys tp1 commands(6). Total: 15. Trauma Score (Adult): 18:03 Eye Response: spontaneous(1); Verbal Response: oriented(1); Motor Response: obeys ss commands(2); Systolic BP: > 89 mm Hg(4); Respiratory Rate: 10 to 29 per min(4); [place] Score: 15; Trauma Score: 12 19:05 Eye Response: spontaneous(1); Verbal Response: oriented(1); Motor Response: obeys tp1 commands(2); Systolic BP: > 89 mm Hg(4); Respiratory Rate: 10 to 29 per min(4); [place] Score: 15; Trauma Score: 12 20:01 Eye Response: spontaneous(1); Verbal Response: oriented(1); Motor Response: obeys tp1 commands(2); Systolic BP: > 89 mm Hg(4); Respiratory Rate: 10 to 29 per min(4); [place] Score: 15; Trauma Score: 12 21:00 Eye Response: spontaneous(1); Verbal Response: oriented(1); Motor Response: obeys tp1 commands(2); Systolic BP: > 89 mm Hg(4); Respiratory Rate: 10 to 29 per min(4); [place] Score: 15; Trauma Score: 12 22:54 Eye Response: spontaneous(1); Verbal Response: oriented(1); Motor Response: obeys tp1 commands(2); Systolic BP: > 89 mm Hg(4); Respiratory Rate: 10 to 29 per min(4); [place] Score: 15; Trauma Score: 12 ED Course: 18:03 Arm band placed on. tp1 18:03 Patient has correct armband on for positive identification. Bed in low position. Call tp1 light in reach. Side rails up X2. 18:03 Pulse ox on. NIBP on. tp1 18:03 Patient maintains SpO2 saturation greater than 95% on room air. ss 18:13 Patient arrived in ED. tp1 18:14 Davon Catalan PA is PHCP. cp 18:14 Alycia Rodríguez MD is Attending Physician. cp 18:16 Triage completed. tp1 18:21 Amee Solis, RN is Primary Nurse. tp1 18:46 XRAY Ribs RIGHT In Process Unspecified. EDMS 19:58 INCENTIVE SPIROMETRY Sent. tp1 20:00 Initial lab(s) drawn, by il, sent to lab. T\T\S collected, blood band applied to patient. [id number] Inserted saline lock: 20 gauge in right antecubital area, using aseptic technique. Blood collected. 21:41 CT Chest, Abdomen, Pelvis - W/Contrast In Process Unspecified. EDMS 22:56 No provider procedures requiring assistance completed. IV discontinued, intact, tp1 bleeding controlled, No redness/swelling at site. Pressure dressing applied. 22:56 Thermoregulation: warm blanket given to patient. tp1 Administered Medications: 18:20 CANCELLED (Physician Discretion): Hydrocodone-Acetaminophen (7.5 mg-325 mg) 1 tabs PO cp once 18:28 Drug: HYDROcodone-acetaminophen 10 mg-325 mg 1 tabs Route: PO; tp1 22:57 Follow up: Response: Pain is decreased tp1 19:58 Drug: morphine 4 mg Route: IVP; Infused Over: 4 mins; Site: right antecubital; tp1 22:57 Follow up: Response: Pain is decreased tp1 Medication: 22:56 VIS not applicable for this client. tp1 Outcome: 22:35 Discharge ordered by MD. cp 22:55 Patient's length of stay was not longer than 2 hours. tp1 22:56 Discharged to home via wheelchair, with family. tp1 22:56 Condition: good 22:56 Discharge instructions given to patient, Instructed on discharge instructions, follow up and referral plans. medication usage, Demonstrated understanding of instructions, follow-up care, medications, Prescriptions given X 2. 22:56 Patient left the ED. tp1 Signatures: Dispatcher [employer] EDMS Alexsandra Cedeño RN RN ss Page, Corey, PA PA cp Parker, Tiffany, RN RN tp1 [email or web address] [email or web address] Corrections: (The following items were deleted from the chart) 22:22 21:58 Reassessment: Patient appears in no apparent distress at this time. No changes tp1 from previously documented assessment. Patient and/or family updated on plan of care and expected duration. Pain level reassessed. Patient is alert, oriented x 3, equal unlabored respirations, skin warm/dry/pink. Patient denies pain at this time. tp1
[2022-06-26 23:28] VITALS: TEMP 98.5
[2022-06-26 23:41] VITALS: BP 119/91; O2SAT 97
== END 2022-06-26 22:56 | disposition home or self-care (01) ==
LOC: ER 18:02
DX: S22.41XA Multiple fractures of ribs, right side, initial encounter for closed fracture (principal); W01.198A Fall on same level from slipping, tripping and stumbling with subsequent striking against other object, initial encounter; F17.210 Nicotine dependence, cigarettes, uncomplicated; I10 Essential (primary) hypertension
CPT/HCPCS: 36415; 71260; 74177; 80048; 85025; 86850; 86900; 86901; 96374; 99285; Q9967